=== PATIENT | male | born 1940 | race Caucasian/White ===

== ENCOUNTER 2019-09-18 06:43 | Outpatient (CLI) | payer MEDICARE, SELFPAY ==
[2019-09-18 08:02] LABS: Blood Urea Nitrogen 27 mg/dL (9-20); Carbon Dioxide 26 mmol/L (22-30); Chloride 103 mmol/L (98-107); Cholesterol 182 mg/dL (0-200); Estimated Glomerular Filt Rate > 60; Glucose 95 mg/dL (75-110); HDL Direct 33 mg/dL; Potassium 4.8 mmol/L (3.4-5.0); Sodium 135 mmol/L (137-145); Triglycerides 112 mg/dL (<150)
[2019-09-18 08:12] LABS: LDL Cholesterol Direct 116 mg/dL
== END 2019-09-18 06:44 | disposition home or self-care (01) ==
PROVIDERS: PCP Internal Medicine; Visit Provider Internal Medicine
DX: I10 Essential (primary) hypertension (principal); E78.5 Hyperlipidemia, unspecified; R73.03 Prediabetes
CPT/HCPCS: 36415; 80048; 80061; 83036

== ENCOUNTER 2020-03-25 07:00 | Outpatient (CLI) | payer MEDICARE, SELFPAY ==
[2020-03-25 08:00] LABS: Alanine Aminotransferase 20 U/L (4-50); Albumin Level 3.9 g/dL (3.5-5.1); Alkaline Phosphatase 84 U/L (38-126); Anion Gap 7 mmol/L (8-16); Aspartate Amino Transferase 27 U/L (17-59); Bilirubin,Total 0.3 mg/dL (0.2-1.3); Blood Urea Nitrogen 26 mg/dL (9-20); Calcium 9.7 mg/dL (8.4-10.2); Carbon Dioxide 25 mmol/L (22-30); Chloride 106 mmol/L (98-107); Cholesterol 184 mg/dL (0-200); Estimated Glomerular Filt Rate > 60; Glucose 104 mg/dL (75-110); HDL Direct 38 mg/dL; Potassium 4.2 mmol/L (3.4-5.0); Sodium 138 mmol/L (137-145); Triglycerides 122 mg/dL (<150)
[2020-03-25 08:10] LABS: Hemoglobin A1C 5.8 % (<5.7)
[2020-03-25 08:11] LABS: LDL Cholesterol Direct 125 mg/dL
[2020-03-25 08:38] LABS: Vitamin D 25 Hydroxy 61.8 ng/mL
== END 2020-03-25 07:01 | disposition home or self-care (01) ==
PROVIDERS: PCP Internal Medicine; Visit Provider Nurse Practitioner
DX: E78.5 Hyperlipidemia, unspecified (principal); I10 Essential (primary) hypertension; E55.9 Vitamin D deficiency, unspecified; R73.03 Prediabetes
CPT/HCPCS: 36415; 80053; 80061; 82306; 83036

== ENCOUNTER 2020-09-24 06:42 | Outpatient (CLI) | payer MEDICARE, SELFPAY ==
[2020-09-24 07:58] LABS: Alanine Aminotransferase 21 U/L (4-50); Alkaline Phosphatase 80 U/L (38-126); Anion Gap 6 mmol/L (8-16); Aspartate Amino Transferase 27 U/L (17-59); Bilirubin,Total 0.4 mg/dL (0.2-1.3); Blood Urea Nitrogen 28 mg/dL (9-20); Calcium 9.8 mg/dL (8.4-10.2); Carbon Dioxide 26 mmol/L (22-30); Chloride 107 mmol/L (98-107); Cholesterol 202 mg/dL (0-200); Estimated Glomerular Filt Rate > 60; Glucose 108 mg/dL (75-110); HDL Direct 42 mg/dL; Potassium 4.4 mmol/L (3.4-5.0); Sodium 139 mmol/L (137-145); Triglycerides 110 mg/dL (<150)
[2020-09-24 08:00] LABS: Hemoglobin A1C 6.2 % (<5.7)
[2020-09-24 08:10] LABS: LDL Cholesterol Direct 108 mg/dL
== END 2020-09-24 06:43 | disposition home or self-care (01) ==
PROVIDERS: PCP Internal Medicine; Visit Provider Internal Medicine
DX: E78.5 Hyperlipidemia, unspecified (principal); I10 Essential (primary) hypertension; R73.03 Prediabetes
CPT/HCPCS: 36415; 80053; 80061; 83036

== ENCOUNTER 2021-01-15 08:13 | Outpatient (CLI) | payer MEDICARE, SELFPAY ==
[2021-01-15 09:30] LABS: Hemoglobin A1C 5.8 % (<5.7)
== END 2021-01-15 08:14 | disposition home or self-care (01) ==
PROVIDERS: PCP Internal Medicine; Visit Provider Nurse Practitioner
DX: R73.03 Prediabetes (principal)
CPT/HCPCS: 36415; 83036

== ENCOUNTER 2021-06-01 10:26 | Outpatient (CLI) | payer MEDICARE, SELFPAY ==
[2021-06-01 10:57] LABS: Add Urine Microscopic? YES; Appearance Urine Clear (Clear); Bacteria Urine Trace /hpf; Bilirubin Urine Negative (Negative); Blood Urine 3+ (Negative); Color Urine Yellow (Yellow); Glucose Urine UA Negative (Negative); Ketones Urine Negative (Negative); Leukocyte Esterase Ur Trace LEU/UL (Negative); Mucus Urine Rare /lpf; Nitrate Urine Negative (Negative); Protein Urine Negative (Negative); RBC Urine 21-50 /hpf (0-2); Specific Grav Ur 1.015 (1.001-1.035); Squamous Epithelial Cell Urine Rare /hpf (Few); Urobilinogen Urine Negative mg/dL (<2.0); WBC Urine 16-20 /hpf
== END 2021-06-01 10:27 | disposition home or self-care (01) ==
LOC: ANHLAB 10:28
PROVIDERS: PCP Internal Medicine; Visit Provider Internal Medicine
DX: R31.9 Hematuria, unspecified (principal)
CPT/HCPCS: 81001; 87086

== ENCOUNTER 2021-06-12 12:36 | Outpatient (CLI) | payer MEDICARE, SELFPAY ==
--- NOTE | ~2021-06-12 | XR_ITS ---
XR abdomen/kub 1V 06/12/2021 13:09 INDICATION: Hematuria TECHNIQUE: KUB COMPARISON: CT dated 06/12/2021 FINDINGS: Bowel gas pattern is normal. There is no evidence of free air, mass, organomegaly, ascites or obstruction. No abnormal calculi are seen. The bones appear intact. IMPRESSION: 1: No acute abdominal abnormality identified. Reviewed, dictated and finalized at location A. CHECKER
--- NOTE | ~2021-06-12 | CT_ITS ---
EXAMINATION: CT abdomen pelvis wo/w con DATE: 06/12/2021 13:38 INDICATION: History of kidney stones. TECHNIQUE: Computed tomography (CT) of the abdomen and pelvis was performed without intravenous contr ast. The dose-length product was 1729.95 mGy-cm. Automated exposure control and iterative reconstruct ion technique were employed. COMPARISON: CT dated 05/10/2007. FINDINGS: Lung bases are unremarkable. Heart size normal. No significant pleural or pericardial effus ion. The liver, spleen, pancreas, adrenal glands and kidneys are unremarkable. There is an accessory splenule. No renal stones. No ureteral stones or significant hydronephrosis. There is atherosclerosis of the aorta without aneurysm. No lymphadenopathy. Retroaortic left renal vein. There are small subc entimeter hypodensities of the kidneys, most likely benign cysts. Ureters are normal in course and ca liber. Prostate gland is enlarged. Moderate lumbar spondylosis with grade 1 degenerative spondylolist hesis at L4-5. Colonic diverticulosis without evidence for diverticulitis. IMPRESSION: 1. No acute abdominal abnormality. 2: Enlarged prostate gland. Reviewed, dictated and finalized at location A. ULANT
[2021-06-12 13:20] LABS: Estimated Glomerular Filt Rate 53
== END 2021-06-12 12:37 | disposition home or self-care (01) ==
LOC: ANHIMG 12:42
PROVIDERS: PCP Internal Medicine; Visit Provider Urology
DX: R31.9 Hematuria, unspecified (principal)
CPT/HCPCS: 74018; 74178; Q9967

== ENCOUNTER 2021-09-15 06:49 | Outpatient (CLI) | payer MEDICARE, SELFPAY ==
[2021-09-15 07:38] LABS: Alanine Aminotransferase 19 U/L (6-50); Alkaline Phosphatase 73 U/L (38-126); Anion Gap 4 mmol/L (8-16); Aspartate Amino Transferase 23 U/L (17-59); Bilirubin,Total 0.4 mg/dL (0.2-1.3); Blood Urea Nitrogen 28 mg/dL (9-20); Calcium 9.3 mg/dL (8.4-10.2); Carbon Dioxide 27 mmol/L (22-30); Chloride 106 mmol/L (98-107); Cholesterol 197 mg/dL (0-200); Estimated Glomerular Filt Rate > 60; Glucose 103 mg/dL (65-110); HDL Direct 41 mg/dL; Potassium 4.4 mmol/L (3.4-5.0); Sodium 137 mmol/L (137-145); Triglycerides 147 mg/dL (<150)
[2021-09-15 07:39] LABS: Hemoglobin A1C 5.8 % (<5.7)
[2021-09-15 07:49] LABS: LDL Cholesterol Direct 110 mg/dL
== END 2021-09-15 06:50 | disposition home or self-care (01) ==
LOC: ANHLAB 06:54
PROVIDERS: PCP Internal Medicine; Visit Provider Internal Medicine
DX: R73.03 Prediabetes (principal); I10 Essential (primary) hypertension; E55.9 Vitamin D deficiency, unspecified; E78.5 Hyperlipidemia, unspecified
CPT/HCPCS: 36415; 80053; 80061; 82306; 83036

== ENCOUNTER 2022-04-14 10:32 | Outpatient (CLI) | payer MEDICARE, SELFPAY ==
[2022-04-14 12:05] LABS: SARS-CoV-2 RNA PCR Negative
== END 2022-04-14 10:33 | disposition home or self-care (01) ==
PROVIDERS: PCP Internal Medicine; Visit Provider Internal Medicine
DX: U07.1 COVID-19 (principal)
CPT/HCPCS: U0003; U0005

== ENCOUNTER 2022-07-15 07:26 | Outpatient (CLI) | payer MEDICARE, SELFPAY ==
[2022-07-15 08:20] LABS: Hematocrit 44.1 % (42.0-52.0); Hemoglobin 14.6 g/dL (14.0-18.0); Mean Corpuscular HGB Conc 33.1 g/dl (32-36); Mean Corpuscular Hemoglobin 32.2 pg (26-34); Mean Corpuscular Volume 97.1 fl (80-100); Mean Platelet Volume 10.7 fl (7.4-10.4); Platelet Count Result 292 k/mm3 (150-375); Red Blood Count 4.54 M/mm3 (4.6-6.20); Red Cell Distribution Width 13.4 % (11.5-14.5); White Blood Count 9.4 K/mm3 (4.5-10.0)
[2022-07-15 08:31] LABS: Hemoglobin A1C 5.8 % (<5.7)
[2022-07-15 08:34] LABS: Alanine Aminotransferase 25 U/L (6-50); Albumin Level 4.2 g/dL (3.5-5.1); Alkaline Phosphatase 85 U/L (38-126); Anion Gap 4 mmol/L (8-16); Aspartate Amino Transferase 28 U/L (17-59); Bilirubin,Total 0.7 mg/dL (0.2-1.3); Blood Urea Nitrogen 26 mg/dL (9-20); Calcium 9.6 mg/dL (8.4-10.2); Carbon Dioxide 29 mmol/L (22-30); Chloride 103 mmol/L (98-107); Cholesterol 238 mg/dL (0-200); Estimated Glomerular Filt Rate > 60; Glucose 102 mg/dL (65-110); HDL Direct 34 mg/dL; Potassium 4.1 mmol/L (3.4-5.0); Sodium 136 mmol/L (137-145); Triglycerides 213 mg/dL (<150)
[2022-07-15 08:45] LABS: LDL Cholesterol Direct 137 mg/dL
[2022-07-19 18:35] LABS: Vitamin D 1,25 (OH)2 Total 32 pg/mL (18-72); Vitamin D2 1,25 (OH)2 <8 pg/mL; Vitamin D3 1,25 (OH)2 32 pg/mL
== END 2022-07-15 07:27 | disposition home or self-care (01) ==
LOC: ANHLAB 07:29
PROVIDERS: PCP Internal Medicine; Visit Provider Internal Medicine
DX: E55.9 Vitamin D deficiency, unspecified (principal); I10 Essential (primary) hypertension; R73.03 Prediabetes; E78.5 Hyperlipidemia, unspecified
CPT/HCPCS: 36415; 80053; 80061; 82652; 83036; 85027

== ENCOUNTER 2023-02-22 07:26 | Outpatient (CLI) | payer MEDICARE, SELFPAY ==
[2023-02-22 08:25] LABS: Alanine Aminotransferase 25 U/L (6-50); Albumin Level 4.2 g/dL (3.5-5.1); Alkaline Phosphatase 81 U/L (38-126); Anion Gap 12 mmol/L (8-16); Aspartate Amino Transferase 27 U/L (17-59); Bilirubin,Total 0.6 mg/dL (0.2-1.3); Blood Urea Nitrogen 26 mg/dL (9-20); Carbon Dioxide 25 mmol/L (22-30); Chloride 103 mmol/L (98-107); Cholesterol 212 mg/dL (0-200); Estimated Glomerular Filt Rate > 60; Glucose 106 mg/dL (65-110); HDL Direct 37 mg/dL; Potassium 4.1 mmol/L (3.4-5.0); Sodium 140 mmol/L (137-145); Triglycerides 174 mg/dL (<150)
[2023-02-22 08:36] LABS: LDL Cholesterol Direct 124 mg/dL
[2023-02-22 09:27] LABS: Vitamin D 25 Hydroxy 42.1 ng/mL
== END 2023-02-22 07:27 | disposition home or self-care (01) ==
LOC: ANHLAB 07:27
PROVIDERS: PCP Family Medicine; Visit Provider Nurse Practitioner
DX: E78.5 Hyperlipidemia, unspecified (principal); E55.9 Vitamin D deficiency, unspecified; R73.03 Prediabetes
CPT/HCPCS: 36415; 80053; 80061; 82306; 83036

== ENCOUNTER 2023-10-19 07:22 | Outpatient (CLI) | payer MEDICARE, SELFPAY ==
[2023-10-19 10:41] LABS: Vitamin D 25 Hydroxy 51.7 ng/mL
[2023-10-19 10:46] LABS: Alanine Aminotransferase 19 U/L (6-50); Alkaline Phosphatase 74 U/L (38-126); Anion Gap 10 mmol/L (4-12); Aspartate Amino Transferase 24 U/L (17-59); Bilirubin,Total 0.5 mg/dL (0.2-1.3); Blood Urea Nitrogen 31 mg/dL (9-20); Carbon Dioxide 25 mmol/L (22-30); Chloride 103 mmol/L (98-107); Cholesterol 185 mg/dL (0-200); Estimated Glomerular Filt Rate 58; Glucose 108 mg/dL (65-110); HDL Direct 38 mg/dL; Potassium 4.5 mmol/L (3.4-5.0); Sodium 138 mmol/L (137-145); Triglycerides 132 mg/dL (<150)
[2023-10-19 11:00] LABS: LDL Cholesterol Direct 121 mg/dL
[2023-10-19 20:54] LABS: Hemoglobin A1C 6.2 % (<5.7)
== END 2023-10-19 07:23 | disposition home or self-care (01) ==
PROVIDERS: PCP Nurse Practitioner; Visit Provider Nurse Practitioner
DX: E78.5 Hyperlipidemia, unspecified (principal); E55.9 Vitamin D deficiency, unspecified; N40.0 Benign prostatic hyperplasia without lower urinary tract symptoms; R73.03 Prediabetes; E78.49 Other hyperlipidemia
CPT/HCPCS: 36415; 80053; 80061; 82306; 83036

== ENCOUNTER 2024-04-18 10:45 | Outpatient (CLI) | payer MEDICARE, SELFPAY ==
[2024-04-18 12:02] LABS: Alanine Aminotransferase 22 U/L (6-50); Albumin Level 3.9 g/dL (3.5-5.1); Alkaline Phosphatase 74 U/L (38-126); Anion Gap 5 mmol/L (4-12); Aspartate Amino Transferase 25 U/L (17-59); Bilirubin,Total 0.6 mg/dL (0.2-1.3); Blood Urea Nitrogen 24 mg/dL (9-20); Calcium 10.4 mg/dL (8.4-10.2); Carbon Dioxide 26 mmol/L (22-30); Chloride 106 mmol/L (98-107); Cholesterol 217 mg/dL (0-200); Estimated Glomerular Filt Rate > 60; Glucose 111 mg/dL (65-110); HDL Direct 36 mg/dL; Potassium 4.4 mmol/L (3.4-5.0); Sodium 137 mmol/L (137-145); Triglycerides 253 mg/dL (<150)
[2024-04-18 12:13] LABS: LDL Cholesterol Direct 121 mg/dL
[2024-04-18 13:52] LABS: Hemoglobin A1C 6.3 % (<5.7)
== END 2024-04-18 10:46 | disposition home or self-care (01) ==
PROVIDERS: PCP Nurse Practitioner; Visit Provider Nurse Practitioner
DX: R73.03 Prediabetes (principal); E78.49 Other hyperlipidemia; E78.5 Hyperlipidemia, unspecified
CPT/HCPCS: 36415; 80053; 80061; 83036

== ENCOUNTER 2024-06-08 15:19 | Emergency (ER) | payer MEDICARE, SELFPAY ==
[2024-06-08 15:16] VITALS: BP 75/51; PULSE 96; RESP 18; TEMP 36.2; O2SAT 98
--- NOTE | 2024-06-08 15:35 | PC.NURSE ---
1535 LYNDON 100 and Etomidate 20 mg given for intubation Intubation by Dr Rivas 7.5 tube, 23 at the lip. color change and breath sounds noted. NG tube placed by Dr Rivas OG AT 75 VS hr 56 RR18 BP 105/86 Levophed started at 5 at 1530
[2024-06-08 15:37] LABS: Basophils Absolute Auto 0.1 K/mm3 (0.0-0.1); Basophils Percent Auto 0.3 % (0.2-1.2); Eosinophils Absolute Auto 0.1 K/mm3 (0-0.3); Eosinophils Percent Auto 0.3 % (0-4.4); Hematocrit 42.8 % (42.0-52.0); Hemoglobin 14.2 g/dL (14.0-18.0); Immature Granulocyte Absolute 0.11 K/mm3 (0.00-0.031); Immature Granulocyte Percent A 0.6 % (0-0.5); Lymphocytes Absolute Auto 2.95 K/mm3 (0.9-3.2); Lymphocytes Percent Auto 15.4 % (18.3-44.2); Mean Corpuscular HGB Conc 33.2 g/dl (32-36); Mean Corpuscular Hemoglobin 32.3 pg (26-34); Mean Corpuscular Volume 97.3 fl (80-100); Mean Platelet Volume 11.1 fl (7.4-10.4); Monocytes Absolute Auto 1.6 K/mm3 (0.1-0.6); Monocytes Percent Auto 8.6 % (2.6-8.5); Neutrophils Absolute Auto 14.3 K/mm3 (1.3-6.7); Neutrophils Percent Auto 74.8 % (45.5-73.1); Platelet Count Result 334 k/mm3 (150-375); Red Cell Distribution Width 13.8 % (11.5-14.5); White Blood Count 19.1 K/mm3 (4.5-10.0)
--- NOTE | 2024-06-08 15:42 | PC.NURSE ---
Levo to 15 pt noted to be hypotensive Central line to be placed by Dr Rivas
--- NOTE | 2024-06-08 15:44 | PC.NURSE ---
code Blue at 1545. epi @ 1545 PULSELESS VTACH NOTED AT 1546 FIRST SHOCK GIVEN AT [address] Montero to speak to family. Amiodarone bolus to be given 1547 SECOND SHOCK GIVEN AT 1547 FOR PULSELESS VTACH EPI 1548 PULSE CHECK @ 1549 vTACH, 3RD SHOCK GIVEN PULSE CHECK @ 1550, RADIAL PULSE PRESENT AMIODORONE AT 1550 ROSC AT 1553 IO PLACED BY TWYLA AT 1548 lEVO CONTINUES AT 15 CENTRAL LINE BEING PLACED BY DR MONTERO LEFT SUBCLAVIAN PT NOTED TO BE BACK VTACH AT 1557, CHEST COMPRESSIONS BEGINNING, PT RECEIVED ONE SHOCK AT 1557 EPI GIVEN AT 1558 PULSE NOTED WITH COMPRESSIONS PULSE CHECK AT 1600 MINIMAL CARDIAC MOVEMENT NOTED ON US compressions resumed EPI at 1601 lEVO CHANGED TO 25 BP 79/48 LOPRESSOR 5MG IVP FOR REFRACTORY VTACH/VFIB AT 1602 PULSE CHECK @ 1603 PEA ON MONITOR SON IN ROOM AT THIS TIME 1603 1605 PULSE CHECK AND CHANGE IN COMPRESSORS. Asystole, continue CPR. EPI 1605 CPR STOPPED AT [address] MONTERO CPR RESUMED Pulse check 1608- Asystole, cpr resumed Son to be brought in room at 1610 for pulse check No more Epi to be given per Dr Montero Son in room Pulse Check 1611-CPR stopped-Asystole on monitor, no pulse found on the pt TOD 1613
[2024-06-08 15:53] LABS: Alanine Aminotransferase 91 U/L (6-50); Albumin Level 3.7 g/dL (3.5-5.1); Alkaline Phosphatase 105 U/L (38-126); Anion Gap 13 mmol/L (4-12); Aspartate Amino Transferase 129 U/L (17-59); Bilirubin,Total 1.1 mg/dL (0.2-1.3); Blood Urea Nitrogen 33 mg/dL (9-20); Calcium 10.2 mg/dL (8.4-10.2); Carbon Dioxide 20 mmol/L (22-30); Chloride 101 mmol/L (98-107); Cholesterol 162 mg/dL (0-200); Estimated CRCL calculation 38 ml/min; Estimated Glomerular Filt Rate 52; Glucose 232 mg/dL (65-110); HDL Direct 45 mg/dL; Potassium 4.4 mmol/L (3.4-5.0); Sodium 134 mmol/L (137-145); Triglycerides 145 mg/dL (<150)
[2024-06-08 15:56] LABS: Prothrombin Time 14.1 Seconds (11.1-14.7)
[2024-06-08 15:57] LABS: Partial Thromboplastin Time 30.5 Seconds (22.3-36.8)
[2024-06-08 16:04] LABS: LDL Cholesterol Direct 80 mg/dL
--- NOTE | 2024-06-08 16:58 | ED.GENADULT ---
HPI - General Adult General Chief complaint: Chest Pain Stated complaint: STEMI Time Seen by Provider: 06/08/24 16:55 History of Present Illness HPI narrative: This is an 83-year-old male brought in as a STEMI. On arrival patient is diaphoretic and somnolent. He is able unable to provide any history. Per EMS patient has been having chest pain on off for the last week. Today he became lightheaded and dizzy and EMS was called. Related Data Home Medications ?Medication ?Instructions ?Recorded ?Confirmed ?Last Taken ?Type ascorbic acid (vitamin C) 500 mg 500 mg PO DAILY 03/28/20 11/04/23 Unknown History tablet aspirin 81 mg tablet,delayed 81 mg PO DAILY 03/28/20 11/04/23 Unknown History release cholecalciferol (vitamin D3) 25 25 mcg PO DAILY 11/04/23 11/04/23 Unknown History mcg (1,000 unit) capsule Allergies Allergy/AdvReac Type Severity Reaction Status Date / Time No Known Allergies Allergy Verified 04/25/24 11:10 [facility] Past Medical History Medical History (Updated 06/08/24 @ 17:07 by Kahlil Rivas MD) Basal cell carcinoma BMI 33.0-33.9,adult Prediabetes Essential (primary) hypertension Hyperlipidemia, unspecified Personal history of malignant melanoma of skin Vitamin D deficiency Family History Family History (Updated 04/25/24 @ 11:10 by ANGELO Armenta) Mother Hypertension Family history of transient ischemic attacks, Onset Age: 83 Sibling Hypertension Family history of amyotrophic lateral sclerosis, Onset Age: 55 Patient's brother is Family history of malignant neoplasm of male breast Father Malignant neoplasm of prostate, Onset Age: 91 Family history of heart disease in male family member before age 55, Onset Age: 91 Social History Social History (Updated 04/25/24 @ 14:16 by ANGELO Armenta) Smoking status: Never smoker Second hand tobacco smoke exposure: No Alcohol intake: current Substance use: never Substance use type: does not use Do You Feel Safe in your Home?: Yes Lack of Transportation: No Lack of Food: Never True Current Housing: I Have Housing Concerned About Future Housing: No Difficulty Paying Gas/Electric Bills: No Difficulty Paying for Meds: No Currently Unemployed: No Education: Master's Degree or Higher Difficulty w/ Childcare or Family Care: No Living arrangements: with family Occupation/Education: retired Additional occupation/education comments: [employer] Gender identity (if verbalized by the patient): Male Exam Narrative: APPEARANCE: Ill-appearing, diaphoretic: Clammy, lethargic Head: atraumatic. EYES: EOMI, NOSE: Atraumatic NECK: Trachea midline RESPIRATORY: Tachypneic CARDIOVASCULAR: Cold limbs, weak pulses, cool skin, weak pulses a for 4 extremities ABDOMINAL: Non-distended soft nontender MUSCULOSKELETAl: No obvious deformities NEURO: Alert. Moving 4/4 extremities SKIN:: Cool clammy PSYCHIATRIC: Lethargic Course Vital Signs Vital signs: Vital Signs Temperature 97.2 F L 06/08/24 15:16 Pulse Rate 96 06/08/24 15:16 Respiratory Rate 18 06/08/24 15:16 Blood Pressure 75/51 L 06/08/24 15:16 Pulse Oximetry 98 06/08/24 15:16 Temperature 97.2 F L 06/08/24 15:16 Pulse Rate 96 06/08/24 15:16 Respiratory Rate 18 06/08/24 15:16 Blood Pressure 75/51 L 06/08/24 15:16 Pulse Oximetry 98 06/08/24 15:16 Procedures Central Line Placement Left SC: Central Line Date: 06/08/24 Performed Emergently - Given emergent patient condition, temporal constraints may have precluded informed consent.: Yes Time Out Performed: No Patient Placed on Monitor/Pulse Ox: Yes Max. Sterile Barrier Technique: Caps, large sterile sheet and hand hygiene Emergently Placed, Full Sterile: prep not done Technique: sterile prep/drape Ultrasound Used for Placement: No Central Line Lumen Inserted: triple Post Procedure: good blood return, all ports aspirated, flushed, capped and sterile dressing applied Patient Tolerated Procedure: no complications Intubation Intubation #1: Intubation Date: 06/08/24 Time out performed: Yes sedative: Etomidate Mg Given: 20 paralytic: Rocuronium Mg Given: 100 Laryngoscope: Diya Tube Size (cm): 7.5 Method of Intubation: orotracheal Number of Attempts: 1 Tube Placement Confirmation: visualized tube passing through cords, equal breath sounds bilaterally and no breath sounds over epigastrium Patient Tolerated Procedure: well Intubation Complications: none Medical Decision Making [facility] Narrative Medical decision making narrative: -Course: 83-year-old male presenting after 1 week of chest pain. Arrival patient is cool clammy and diaphoretic. EKG showed STEMI. STEMI was activated, however the patient's mental status continued to decline. The patient was intubated for airway protection. Blood pressures were very low. Placed on norepinephrine. Patient then lost pulses due to V-tach arrest. ACLS was performed the patient received several rounds of epi, amiodarone loading and eventually ROSC was obtained. However the patient then lost pulses again. Point of care ultrasound showed an enlarging pericardial infusion. Pericardiocentesis was performed under ultrasound guidance however I was unable to aspirate any blood or fluid. Patient is elderly with prolonged down time. Chance of neurologically intact survival was nil. Patient's son was brought to bedside and time of was called @ 1613. -DDX includes but is not limited to: STEMI, aortic dissection, cardiac tamponade Vital Signs Vital Signs: Vital Signs Temperature 97.2 F L 06/08/24 15:16 Pulse Rate 96 06/08/24 15:16 Respiratory Rate 18 06/08/24 15:16 Blood Pressure 75/51 L 06/08/24 15:16 Pulse Oximetry 98 06/08/24 15:16 Temperature 97.2 F L 06/08/24 15:16 Pulse Rate 96 06/08/24 15:16 Respiratory Rate 18 06/08/24 15:16 Blood Pressure 75/51 L 06/08/24 15:16 Pulse Oximetry 98 06/08/24 15:16 Lab Data 06/08/24 15:33 06/08/24 15:33 Labs: Lab Results 06/08/24 Range/Units 15:33 WBC 19.1 H (4.5-10.0) K/mm3 RBC 4.40 L (4.6-6.20) M/mm3 Hgb 14.2 (14.0-18.0) g/dL Hct 42.8 (42.0-52.0) % MCV 97.3 (80-100) fl MCH 32.3 (26-34) pg MCHC 33.2 (32-36) g/dl RDW 13.8 (11.5-14.5) % Plt Count 334 (150-375) k/mm3 MPV 11.1 H (7.4-10.4) fl Immature Gran % (Auto) 0.6 H (0-0.5) % Neut % (Auto) 74.8 H (45.5-73.1) % Lymph % (Auto) 15.4 L (18.3-44.2) % [place] % (Auto) 8.6 H (2.6-8.5) % Eos % (Auto) 0.3 (0-4.4) % Baso % (Auto) 0.3 (0.2-1.2) % Lymph # (Auto) 2.95 (0.9-3.2) K/mm3 [place] # (Auto) 1.6 H (0.1-0.6) K/mm3 Eos # (Auto) 0.1 (0-0.3) K/mm3 Baso # (Auto) 0.1 (0.0-0.1) K/mm3 Abs Immat Gran (auto) 0.11 H (0.00-0.031) K/mm3 Absolute Neuts (auto) 14.3 H (1.3-6.7) K/mm3 Absolute Nucleated RBC 0.000 (0.0-0.012) K/mm3 Nucleated RBC % 0.0 (0.0-0.2) % PT 14.1 (11.1-14.7) Seconds INR 1.0 APTT 30.5 (22.3-36.8) Seconds Sodium 134 L (137-145) mmol/L Potassium 4.4 (3.4-5.0) mmol/L Chloride 101 (98-107) mmol/L Carbon Dioxide 20 L (22-30) mmol/L Anion Gap 13 H (4-12) mmol/L BUN 33 H (9-20) mg/dL Creatinine 1.32 H (0.7-1.3) mg/dL Estim Creat Clear Calc 38 ml/min Estimated GFR 52 L (59 - ) Glucose 232 H (65-110) mg/dL Calcium 10.2 (8.4-10.2) mg/dL Total Bilirubin 1.1 (0.2-1.3) mg/dL AST 129 H (17-59) U/L ALT 91 H (6-50) U/L Alkaline Phosphatase 105 (38-126) U/L Troponin I 14.200 H* (0.000-0.034) ng/mL Total Protein 7.0 (6.3-8.2) g/dL Albumin 3.7 (3.5-5.1) g/dL Triglycerides 145 (<150) mg/dL Cholesterol 162 (0-200) mg/dL LDL Cholesterol Direct 80 mg/dL HDL Direct 45 mg/dL Critical Care Time Critical Care Time Critical Care Time: Yes Total Critical Care Time: 45 Discharge Plan Discharge Clinical Impression: Cardiac arrest Patient Disposition: Home, Self-Care Condition: Instructions: Antibiotic Form Patient Language: Albanian Prescriptions: No Action ascorbic acid (vitamin C) 500 mg tablet 500 mg PO DAILY aspirin 81 mg tablet,delayed release (DR/EC) 81 mg PO DAILY cholecalciferol (vitamin D3) 25 mcg (1,000 unit) capsule 25 mcg PO DAILY spironolactone 25 mg tablet 25 mg PO DAILY Qty: 90 1RF losartan-hydrochlorothiazide 100-12.5 mg tablet 1 tablet PO DAILY Qty: 90 1RF Follow-up/Referrals: Maurizio Jane APRN [Primary Care Provider] -
--- NOTE | 2024-06-08 17:13 | PC.NURSE ---
MTS released patient per HS. [place]
--- NOTE | 2024-06-08 17:14 | PC.NURSE ---
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
== END 2024-06-08 19:43 | disposition expired ==
PROVIDERS: Emergency Provider Emergency Medicine; PCP Nurse Practitioner
DX: I46.9 Cardiac arrest, cause unspecified (principal); I10 Essential (primary) hypertension; E78.5 Hyperlipidemia, unspecified; E55.9 Vitamin D deficiency, unspecified; R73.03 Prediabetes; Z85.828 Personal history of other malignant neoplasm of skin; Z79.82 Long term (current) use of aspirin; Z79.899 Other long term (current) drug therapy; I49.3 Ventricular premature depolarization; R94.31 Abnormal electrocardiogram [ECG] [EKG]
CPT/HCPCS: 31500; 36415; 36556; 80053; 80061; 84484; 85025; 85610; 85730; 92950; 93005; 96374; 96375; 99291; C1751; J0171; J0282; J1171; J2060; J2250; J3010; J7060